=== PATIENT | male | born 1965 | race Caucasian/White ===

== ENCOUNTER → 2017-03-24 | Outpatient (CLI) | payer BC | LOC: CIMAGING 11:55 | PROVIDERS: ATTEND Family Medicine | DX: M54.5 Low back pain (principal) | CPT/HCPCS: 72100-PO ==

== ENCOUNTER → 2017-09-08 | Outpatient (CLI) | payer BC | LOC: CIMAGING 15:09 | PROVIDERS: ATTEND Family Medicine | DX: M16.0 Bilateral primary osteoarthritis of hip (principal); M25.851 Other specified joint disorders, right hip; M25.852 Other specified joint disorders, left hip | CPT/HCPCS: 73521-PO ==

== ENCOUNTER → 2017-09-24 | Outpatient (CLI) | payer BC | LOC: FIMAGING 16:09 | PROVIDERS: ATTEND Family Medicine | DX: M54.5 Low back pain (principal); G89.29 Other chronic pain; M25.552 Pain in left hip; H81.12 Benign paroxysmal vertigo, left ear; M51.36 Other intervertebral disc degeneration, lumbar region; M51.26 Other intervertebral disc displacement, lumbar region; R60.9 Edema, unspecified ==